=== PATIENT | female | born 1995 | race Caucasian/White ===

== ENCOUNTER 2020-05-28 19:54 | Emergency (ER) | payer MEDICAID, OTHER ==
[~2020-05-28] VITALS: Ht 162.6 cm; Wt 81.6 kg
[2020-05-28 20:46] VITALS: BP 130/68
== END 2020-05-29 00:42 | disposition left against medical advice (07) ==
LOC: ER 19:56
DX: M79.89 Other specified soft tissue disorders (principal); Z53.21 Procedure and treatment not carried out due to patient leaving prior to being seen by health care provider